=== PATIENT | female | born 1945 | race Caucasian/White ===

== ENCOUNTER 2018-08-31 05:46 | Day surgery (SDC) | payer MEDICARE, OTHER ==
[2018-08-31] MEDS ORDERED: PROMETHAZINE HCL 25 MG/ML VIAL IV ONE (05:47)
[2018-08-31] MEDS ORDERED: KETAMINE HCL 100MG/1ML VIAL INJ ONE (05:47)
[2018-08-31] MEDS ORDERED: LIDOCAINE 2% MDV (20MG/ML) 20ML VIAL IV ONE (05:47)
[2018-08-31] MEDS ORDERED: ALPRAZOLAM 0.25 MG TABLET PO ONE (05:47)
[2018-08-31] MEDS ORDERED: PROPOFOL 10 MG/ML VIAL IV ONE (05:47)
[2018-08-31] MEDS ORDERED: 0.9 % SODIUM CHLORIDE 10 ML VIAL IVP ONE (05:47)
[2018-08-31] MEDS ORDERED: KETOROLAC 30 MG/ML VIAL IVP ONE (05:47)
[2018-08-31] MEDS ORDERED: TRANEXAMIC ACID 1,000 MG/10 ML ML IV ONE ×2 (05:47)
[2018-08-31] MEDS ORDERED: 0.9 % SODIUM CHLORIDE 100ML 100 ML IV ONE (05:47)
[2018-08-31] MEDS ORDERED: MIDAZOLAM HCL 2MG/2ML VIAL IV ONE (05:47)
[2018-08-31] MEDS ORDERED: ONDANSETRON HCL IV 4 MG/2 ML VIAL IVP ONE (05:47)
[2018-08-31] MEDS ORDERED: ROPIVACAINE HCL (NAROPIN) /PF 5MG/ML 20ML VIAL IV ONE (05:47)
[2018-08-31] MEDS ORDERED: BUPIVACAINE 0.5% W/EPI MPF 30 ML VIAL IVP ONE (05:47)
[2018-08-31] MEDS ORDERED: DEXAMETHASONE 4 MG/ML 1ML VIAL IVP ONE (05:47)
[2018-08-31] MEDS ORDERED: VANCOMYCIN HCL 1,000 MG in DEXTROSE 5 % IN WATER 250 ML IVPB ONE ×2 (06:00)
[2018-08-31] MEDS ORDERED: CEFAZOLIN 2 Gram 2 GM/50 ML BAG IVPB ONE (06:00)
[2018-08-31] MEDS ORDERED: MECLIZINE 25 MG TABLET PO ONE (06:00)
[2018-08-31] MEDS ORDERED: METOCLOPRAMIDE 10 MG TABLET PO ONE (06:00)
[2018-08-31] MEDS ORDERED: FAMOTIDINE 20MG TABLET PO ONE (06:00)
[2018-08-31] MEDS ORDERED: CELECOXIB 100 MG CAPSULE PO ONE (06:00)
[2018-08-31 09:23] LABS: ABO GROUP A; ANTIBODY SCREEN NEGATIVE (NEGATIVE); RH TYPE POSITIVE
[2018-08-31] MEDS ORDERED: AL HYDROX/MAG HYDROX 30ML UD PO PRN (10:00)
[2018-08-31] MEDS ORDERED: MAGNESIUM HYDROXIDE 30 ML UDC PO PRN (10:00)
[2018-08-31] MEDS ORDERED: TRAMADOL HCL 50 MG TABLET PO PRN (10:00)
[2018-08-31] MEDS ORDERED: ONDANSETRON HCL IV 4 MG/2 ML VIAL IVP PRN (10:00)
[2018-08-31] MEDS ORDERED: DIPHENHYDRAMINE HCL 25 MG CAPSULE PO PRN (10:00)
[2018-08-31] MEDS ORDERED: HYDROMORPHONE HCL 2 MG/ML VIAL IM PRN (10:00)
[2018-08-31] MEDS ORDERED: ACETAMINOPHEN W/ CODEINE 300MG/60MG TABLET PO PRN ×2 (10:00)
[2018-08-31] MEDS ORDERED: ACETAMINOPHEN 325 MG TAB PO PRN (10:00)
[2018-08-31] MEDS ORDERED: BISACODYL 10 MG SUPP RC PRN (10:00)
[2018-08-31] MEDS ORDERED: HYDROCODONE/APAP 10/325 TABLET PO PRN (10:00)
[2018-08-31] MEDS ORDERED: KETOROLAC 30 MG/ML VIAL IVP PRN ×2 (10:00)
[2018-08-31] MEDS ORDERED: ZOLPIDEM TARTRATE 5 MG TABLET PO PRN (10:00)
[2018-08-31] MEDS ORDERED: NALOXONE 0.4 MG/1 ML VIAL IVP PRN (10:00)
[2018-08-31] MEDS: FERROUS SULFATE 325 MG TAB PO SCH (11:14)
[2018-08-31] MEDS: DOCUSATE SODIUM 100 MG CAPSULE PO SCH ×2 (11:14→21:01)
--- NOTE | 2018-08-31 14:02 | Rehab Evaluation ---
Patient Information - Patient Information Diagnosis: L knee OA Ordered Treatment: PT Evaluate and Treat Status: Initial Evaluation Surgery: Yes (L TKA) Date of Surgery: 08/31/18 Past Medical/Surgical Hx: PAST MEDICAL/SURGICAL HISTORY Past Surgical History SCS cervical double fusion and lami cervical danielito hyst bilat cats bladder suspension c scope multiple back injs. etc PMH - Respiratory Hx Respiratory Disorders Yes Hx Bronchitis Yes Comment: spontaneous pneumo left 2007 PMH - Cardiovascular Hx Cardiovascular Disorders No Exercise Tolerance Fair Comment: uses cane PMH - Neuro Hx Neurological Disorders Yes Comment: [facility] 1997. has caused axiety to point of panic attacks if she is stressed PMH - GI Hx Gastrointestinal Disorders Yes Hx Gastroesophageal Reflux Yes: occassionally PMH - Hx Genitourinary Disorders No PMH - Endocrine Hx Endocrine Disorders No PMH - Musculoskeletal Hx Musculoskeletal Disorders Yes Hx Arthritis Yes Hx Back Injury Yes: cervical 1997 Comment: double cervical fusion and lami PMH - Psych Hx Psychiatric Problems Yes Hx Anxiety Yes: occassional panic attacks if stressed PMH - Hematology/Oncology Hx Hematology/Oncology No Disorders Premorbid Status: Detail (The patient was independent with mobility prior to surgery.) Social History: Detail (The patient lives with spouse in one story house with 2 steps at the enterance and one railing. The bathroom is equipped with a walk-in- shower with grab bars and built in seats and a standard height toilet. The patient has a front wheeled walker and a standard cane.) Precautions: [place], Fall, Other (WBAT on the L LE.) - Time With Patient Total Time Spent With Patient (Min): 30 Treatment Procedures: Detail (Initial Evaluation) Subjective Information - Subjective Information Per Patient (The patient has no complaints of pain.) Objective Data - Mental Status Patient Orientation: Oriented x3 - Visual Perception Appears within normal limits for therapeutic activities - ROM Not within normal limits (The patient's L knee AROM is limited as to be expected s/p surgery. All other LE AROM is WNL.) - Strength/Tone Not within normal limits (The patient's L LE strength was not tested s/p surgery , however was functional ie: the patient was able to complete a SLR. The patient's R LE strength was functional.) - Bed Mobility Independent (The patient was independent with supine to and from sit transfer and scooting up in bed.) - Transfers Independent (The patient was independent with sit to and from stand transfer and toilet transfer with use of grab bar.) - Balance Balance Sitting: Good Balance Standing: Good - Sensation Intact - Gait Detail (The patient ambulated with front wheeled walker a distance of 50 feet x 1 WBAT on the L LE with supervision for safety only.) Therapy Assessment - Therapy Assessment Detail (The patient was independent with bed mobility and transfers and required supervision for safety only with ambulation. Feel the patient will progress well with mobility.) Problem List - Problem List Physical Therapy Problem List: Detail (1) Limited AROM L knee. 2) Decreased L LE strength.) Goals - Goals Physical Therapy Goals: 1) The patient will be independent with TKA HEP. 2) The patient will ambulate on stairs using proper technique with supervision for safety. Prognosis - Prognosis Good Plan - Plan Physical Therapy Plan: PT 1-2 sessions for instruction in HEP and gait training on stairs.
[2018-08-31] MEDS: PREGABALIN 50 MG CAPSULE PO SCH ×2 (16:47→21:01)
[2018-08-31] MEDS: PREGABALIN (LYRICA) 100MG CAPSULE PO SCH ×2 (16:47→21:01)
[2018-08-31] MEDS: CEFAZOLIN 2 Gram 2 GM/50 ML BAG IVPB SCH (16:53)
[2018-08-31] MEDS: HYDROCODONE/APAP 10/325 TABLET PO PRN (21:00)
[2018-08-31] MEDS ORDERED: TIZANIDINE HCL 4 MG TABLET PO SCH (22:00)
[2018-09-01] MEDS: CEFAZOLIN 2 Gram 2 GM/50 ML BAG IVPB SCH ×2 (00:06→07:18)
[2018-09-01] MEDS: POTASSIUM CHLORIDE/D5-0.9%NACL 20 MEQ/1,000 ML BAG IV SCH ×4 (00:07→11:48)
[2018-09-01] MEDS: HYDROCODONE/APAP 10/325 TABLET PO PRN ×3 (02:10→11:35)
[2018-09-01 06:59] LABS: HEMATOCRIT 33.4 % (35.0-47.0); HEMOGLOBIN 10.2 gm/dl (11.6-16.0)
[2018-09-01 07:43] LABS: BLOOD UREA NITROGEN 22 mg/dL (8-23); CREATININE 0.8 mg/dL (0.5-0.9); EST GLOMERULAR FILTRATION RATE > 60 mL/min; GLUCOSE,RANDOM 124 mg/dL (74-109)
--- NOTE | 2018-09-01 08:31 | Operative Note ---
DATE OF SURGERY: 08/31/2018 PREOPERATIVE DIAGNOSIS: End-stage arthrosis of the left knee. POSTOPERATIVE DIAGNOSIS: End-stage arthrosis of the left knee. OPERATION: Cemented left total knee arthroplasty using [employer] Cyn II components with a size 4 Oxinium posterior stabilized femur, a size 3 stem tibial baseplate, a size 11 posterior stabilized tibial insert, and a 32 mm all plastic patella. Staff Surgeon: Slava Quevedo MD Anesthesia: Spinal. PREPARATION: Chloraprep. INDIVIDUAL CONSIDERATIONS: None. PROCEDURE: The patient was taken to the operating room, placed supine on the operating room table. She had a successful induction of spinal anesthetic. The left lower extremity was prepped and draped in the usual fashion. The patient had a midline approach to the knee. The limb was elevated and tourniquet was inflated to 300 mmHg. Sharp dissection carried down through skin and subcutaneous tissue. Small veins were coagulated with a Bovie. A medial arthrotomy was performed. The patella was everted and the knee was flexed. She had [id number] contact throughout. Fat pad was resected, ACL was sacrificed, provisional anterior meniscectomies were performed. The capsule was released from the medial proximal tibia. The initial femoral menhaden vessel pilot hole was then made freehand. The intramedullary femoral cutting jig was placed. It was cut in 7.0 degrees of valgus and adjusted for rotation and secured with pins for a 10 mm resection. The initial transverse cut was then made. The skin guide was placed in the anterior and posterior menhaden vessel pilot holes. It was found that a size 4 would be appropriate. The anterior and posterior cuts followed by chamfer cuts were made. Osteophytes removed, and a size 4 trial was placed and found to fit well. The tibia was brought forward, and the remainder of the meniscal remnants removed with a Bovie. The extraarticular tibial cutting jig was placed. It was cut in neutral with a 3-degree AP slope. Care was taken to adjust the rotation and flexion using the extraarticular alignment guide and bony landmarks. It was set for a 9 mm resection keyed off the high lateral side and secured with pins. When cutting the tibia, care was taken to attempt to preserve the PCL insertion on the tibia. After cutting the tibia and removing osteophytes, it was found that a size 11 baseplate trial fit appropriately but unfortunately the PCL on the tibia was only handing on by a thread, so I had to abandon the femur and go to a posterior stabilized. I went ahead and mounted the mounting jig for the notch reamer, went ahead and reamed the notch, box cutting osteotome on the notch, removed the soft tissue. Then, with an 11 mm posterior stabilized trial and the femoral trial, there was excellent motion and stability, ligamentous balance, rotation alignment, and patellofemoral tracking even at this point were thought to be normal. The tourniquet was let down briefly to get bleeders posteriorly and then placed back up again. The patient had a marginal patella measuring about 20 mm. I cut roughly 8-9 mm compensating for cartilage loss leaving at least 13 mm of bone. I was able to fit a 32 patella, and the 3 menhaden vessel pilot holes were drilled. The knee was then thoroughly irrigated out with pulsatile Betadine and saline to remove any visual or palpable debris. Bony surfaces were then dried. A size 3 stem tibia baseplate was cemented into place followed by cementing in the size 4 Oxinium posterior stabilized femur followed by impacting the 11 mm thick posterior stabilized tibial insert followed by cementing in the 32 mm all plastic patella. The implant surfaces were compressed, excess cement was removed, and after the cement had set, there was excellent motion and stability, ligamentous balance, rotation alignment, and patellofemoral tracking were normal. No lateral release was required. Tourniquet was let down. Hemostasis was obtained with a Bovie. The capsule was then closed with a running #2 quill. Subcu was closed in layers with running 0 quill. Skin was closed with niko. Prior to closure, I did infiltrate the skin and subcutaneous tissue with 30 mL of 0.5% Marcaine with epinephrine. After closure of the skin, I injected the knee with 1 g of tranexamic acid mixed with 30 mL of saline through a sterile 18-gauge needle. The patient tolerated procedure well. Needle and sponge counts were correct. Estimated blood loss was minimal, and she was taken back to recovery in good condition. There were no complications. LARISSA
[2018-09-01] MEDS: DOCUSATE SODIUM 100 MG CAPSULE PO SCH (09:10)
[2018-09-01] MEDS: FERROUS SULFATE 325 MG TAB PO SCH (09:10)
[2018-09-01] MEDS: PREGABALIN (LYRICA) 100MG CAPSULE PO SCH (09:11)
[2018-09-01] MEDS: PREGABALIN 50 MG CAPSULE PO SCH (09:11)
[2018-09-01] MEDS ORDERED: RIVAROXABAN 10 MG TABLET PO SCH (10:00)
--- NOTE | 2018-09-01 10:32 | Physical Therapy Tx Note ---
Physical Therapy Tx Note - Treatment Note Tolerated: Good Total Time Spent With Patient: 25 Physical Therapy Tx Note: Detail (The patient was up in chair when PT arrived. The patient ambulated with front wheeled walker a distance of 120 feet x 1, WBAT on the L LE independently. The patient ambulated on steps with use of one railing and cane with supervision for safety only. The patient completed TKA exercises including: supine heel slides, ankle pumps, quad sets, hamstring sets , SLR and gluteal sets. The patient has met all PT goals and is discharged from inpatient PT.) Physical Therapy Problem List: Detail (1) Limited AROM L knee. 2) Decreased L LE strength.) Physical Therapy Goals: 1) The patient will be independent with TKA HEP. (Goal Met). 2) The patient will ambulate on stairs using proper technique with supervision for safety. (Goal Met) Prognosis: Good Physical Therapy Plan: The patient is discharged from inpatient PT secondary to all PT goals have been met. The patient is to continue with Home PT.
--- NOTE | 2018-09-01 10:56 | Rehab Evaluation ---
Patient Information - Patient Information Diagnosis: L knee OA Ordered Treatment: OT Evaluate and Treat Status: Initial Evaluation Surgery: Yes (L TKA) Date of Surgery: 08/31/18 Past Medical/Surgical Hx: PAST MEDICAL/SURGICAL HISTORY Past Surgical History SCS cervical double fusion and lami cervical danielito hyst bilat cats bladder suspension c scope multiple back injs. etc PMH - Respiratory Hx Respiratory Disorders Yes Hx Bronchitis Yes Comment: spontaneous pneumo left 2007 PMH - Cardiovascular Hx Cardiovascular Disorders No Exercise Tolerance Fair Comment: uses cane PMH - Neuro Hx Neurological Disorders Yes Comment: [facility] 1997. has caused axiety to point of panic attacks if she is stressed PMH - GI Hx Gastrointestinal Disorders Yes Hx Gastroesophageal Reflux Yes: occassionally PMH - Hx Genitourinary Disorders No PMH - Endocrine Hx Endocrine Disorders No PMH - Musculoskeletal Hx Musculoskeletal Disorders Yes Hx Arthritis Yes Hx Back Injury Yes: cervical 1997 Comment: double cervical fusion and lami PMH - Psych Hx Psychiatric Problems Yes Hx Anxiety Yes: occassional panic attacks if stressed PMH - Hematology/Oncology Hx Hematology/Oncology No Disorders Premorbid Status: Detail (The patient was independent with mobility prior to surgery. Pt and spouse share all home mgmt, meal prep and laundry.) Social History: Detail (The patient lives with spouse in one story house with basement. She has 3 steps at the entrance and one railing. The bathroom is equipped with a [id number] with grab bars and built in seats and a standard height toilet with a riser and grab bar. The patient has a front wheeled walker , toilet riser and a standard cane.) Precautions: [place], Fall, Other (WBAT on the L LE.) - Time With Patient Total Time Spent With Patient (Min): 30 Treatment Procedures: Detail (OT eval low complexity) Subjective Information - Subjective Information Per Patient Objective Data - Pain Pain Present: Yes (12/31) - Mental Status Patient Orientation: Oriented x3 - Visual Perception Appears within normal limits for therapeutic activities - ROM Within normal limits (Ron UE AROM WNL) - Strength/Tone Within normal limits (Ron UE strength WNL) - Coordination Appears within normal limits for therapeutic activities - Bed Mobility Independent (Ind with supine to sit) - Transfers Independent (Ind with sit to stand from EOB.) - Balance Balance Sitting: Good Balance Standing: Good - Sensation Intact - Gait Detail (Pt ambulating in room with 2 wheeled walker and SBA) - ADL's/IADL's Detail (Pt educated and able to demonstrate learning of modified LE dressing techniques including doffing underwear and slipper socks and donning underwear, pants, socks and slip on shoes. Reviewed shower and kitchen modifications and safety, pt verbalized understanding.) Therapy Assessment - Therapy Assessment Detail (Pt is Ind with modified LE dressing techniques.) Problem List - Problem List Physical Therapy Problem List: Detail (1) Limited AROM L knee. 2) Decreased L LE strength.) Occupational Therapy Problem List: Detail (No current IP OT problems identified. ) Goals - Goals Physical Therapy Goals: 1) The patient will be independent with TKA HEP. (Goal Met). 2) The patient will ambulate on stairs using proper technique with supervision for safety. (Goal Met) Occupational Therapy Goals: No current IP OT goals identified. Prognosis - Prognosis Good Plan - Plan Physical Therapy Plan: The patient is discharged from inpatient PT secondary to all PT goals have been met. The patient is to continue with Home PT. Occupational Therapy Plan: No further IP OT recommended. Thank you for this referral.
== END 2018-09-01 12:55 | disposition home health service (06) ==
LOC: SUR 05:46 → MEDSURG 11:07 → SUR 09-01 12:55
PROVIDERS: ATTEND Orthopaedic Surgery
DX: M17.12 Unilateral primary osteoarthritis, left knee (principal)
CPT/HCPCS: 27447; 01402; 64447; 85018; 85014; 80048; 86900; 86901; 86850; 76942; J1885; J2405; J3370; J0690 ×2; J3490 ×4; J2795; G8978; G8979 ×2; G8980; 97110; 97530; C1776; J2550; J3480; J7060